=== PATIENT | male | born 1985 | race Two or more races ===

== ENCOUNTER 2019-12-15 00:19 | Day surgery (SDC) | payer SELFPAY ==
[2019-12-01 14:05] VITALS: BMI 31.9
--- NOTE | 2019-12-07 08:24 | PM.IMHP ---
H&P: HPI History of Present Illness Chief complaint: Right ACL Tear, Medial Meniscus Tear Narrative: Knee Pain Patient was seen for MRI review Involved knee: right Onset: gradual Location of pain: medial and lateral Character: throbbing Timing of pain: constant Exacerbated by: direct pressure, weight bearing, kneeling, squatting, rotational activities, prolonged activity and walking up stairs Relieved by: elevation and rest Associated symptoms: Reports instability Chief Complaint Chief Complaint: see Reason for Visit (Right Knee Pain ) Duration: weeks weeks: 3-4 Severity: moderate Associated signs and symptoms: symptoms reported: (see hpi) Exacerbating/relieving factors: relieving factors: (see hpi) Review of Systems Review of Systems: All systems reviewed & are unremarkable except as noted in HPI and below Constitutional: Constitutional: Denies headache(s) and Denies weakness Eyes: Eyes: Denies blurry vision, Denies change in vision and Denies loss of vision ENT: Denies dizziness, Denies dry mouth, Denies headache(s) and Denies nasal congestion Cardiovascular: Cardiovascular: Denies chest pain, Denies syncope, Denies leg edema and Denies dyspnea on exertion Respiratory: Respiratory: Denies cough and Denies dyspnea on exertion Gastrointestinal: Gastrointestinal: Denies abdominal pain, Denies constipation and Denies diarrhea Genitourinary: Genitourinary: Denies urinary frequency Musculoskeletal: Musculoskeletal: Reports as per HPI and Denies numbness Integumentary/Breasts: Skin/Breast: Reports system reviewed and no additional complaints, except as docu Neurologic: Denies dizziness, Denies syncope, Denies headache(s), Denies loss of vision, Denies numbness and Denies weakness Psychiatric: Psychiatric: Reports no additional psychiatric complaints Endocrine: Endocrine: Reports no additional endocrine complaints Hematologic/Lymphatic: Hematologic/Lymphatic: Reports no additional hematologic/lymphatic complaints [facility] Social History Social History Gender identity (if verbalized by the patient): Male Meds Home Medications and Allergies Home Medications Medication Instructions Recorded Confirmed Type No Home Medications 10/19/19 12/01/19 History Allergies Allergy/AdvReac Type Severity Reaction Status Date / Time No Known Allergies Allergy Verified 11/13/19 12:52 Exam Narrative: Exam Narrative: Extrem General: Yes normal to inspection, Yes capillary refill normal, No clubbing, No cyanosis, No edema, Yes Limp noted and Yes muscle atrophy Right lower extremity: normal to inspection, normal capillary refill and knee Details: normal to inspection, tenderness Location: medial joint line, swelling, knee ligament exam abnormal Details: anterior drawer test and Mathew's test and crepitus; Negative for abnormal to inspection, abnormal ROM (ROM 10 T0 125 DEG), Villa's Test, abrasion, laceration, ecchymosis, deformity (VARUS DEFORMITY) and warmth; No full ROM, cyanosis or edema Left lower extremity: normal to inspection, full ROM, normal capillary refill and knee (ROM 0 TO 130 EG) Details: normal to inspection, normal ROM and knee ligament exam normal; Negative for tenderness, swelling, Villa's Test, abrasion, laceration, ecchymosis, crepitus, deformity and warmth; No cyanosis, edema or no joint enlargement Assessment and Plan Additional Plan TONIE WAS SEEN FOR HIS RIGHT KNEE PAIN AND INSTABILITY. SPOKE A LITTLE BIT MORE ABOUT HIS PRIOR INJURIES WHICH HAPPENED IN [place] AND HIS ACL TEAR THAT WAS NEVER REPAIRED. HE ALSO TELLS ME ABOUT HOW HE HAS INSTABILITY ON OCCASION WELL FEELS THE KNEE GIVES OUT. THIS HAPPENS AT LEAST ONCE OR TWICE A WEEK. HE STILL COMPLAINS OF MEDIAL-SIDED KNEE PAIN AND ON EXAMINATION HE HAS TENDERNESS OVER THE MEDIAL JOINT LINE HE ALSO HAS SOME LAXITY WITH MATHEW'S MANEUVER AND WITH ANTERIOR DRAWER. HE HAS SMALL EFFUSION WE
[2019-12-15] VITALS (13 sets, daily range): BP systolic 117–149; BP diastolic 67–96; PULSE 81–101; RESP 14–28; TEMP 36.2–37.1; O2SAT 92–100
[2019-12-15] MEDS: CELECOXIB 200 MG CAPSULE PO (06:15)
--- NOTE | 2019-12-15 06:48 | WPDANESEPPF ---
Anes - Initial Pre Proc Eval Procedure: Operation Date: 12/15/19 07:30 Proposed Procedures p Right Anterior Cruciate Ligament Reconstruction, Medial Meniscectomy - Leonel Haas MD Date/Time: 12/15/19 06:48 Surgeon: Leonel Haas MD Pre Op Diagnosis: Right ACL Tear, Medial Meniscus Tear Patient Data Age: 34 Gender: M Height: 1.75 m Weight: 125.6 kg Last Vital Signs Temp 37.1 C 12/15/19 06:22 Pulse 86 12/15/19 06:22 Resp 16 12/15/19 06:22 BP 134/83 12/15/19 06:22 Pulse Ox 100 12/15/19 06:22 Allergies Allergy/AdvReac Type Severity Reaction Status Date / Time No Known Allergies Allergy Verified 11/13/19 12:52 Home Medications Medication Instructions Recorded Confirmed Type No Home Medications 10/19/19 12/01/19 History Patient hx anesthesia problems: none Family hx anesthesia problems: none PMFSH Social History Social History Gender identity (if verbalized by the patient): Male Anes - Eval Final PreProcedure Day of Procedure 12/15/19 06:48 Patient weight: morbidly obese Heart: regular rate and rhythm Lungs: clear to auscultation and normal air movement Airway: Mallampati scale class II Neurological: alert and oriented Last oral intake: >/= 8 hours ASA classification: III Emergent: no Anesthetic plan: proceed Anesthesia type and monitoring: general LMA and standard monitoring Informed Consent: The patient's anesthetic plan and its attendant risks and benefits were discussed with the patient/family/POA. Questions were solicited and answers provided to the satisfaction of the patient/family/POA.
[2019-12-15] MEDS: LACTATED RINGERS 1,000 ML 30 ML IV CONT ×2 (07:13→10:21)
--- NOTE | 2019-12-15 07:30 | SUR.PREOP ---
0715-PT INFORMED DR. LAIRD IS DELAYED DUE TO TRAFFIC ISSUE FOR UNDETERMINED AMOUNT OF TIME.
--- NOTE | 2019-12-15 07:51 | WPDHPUPDATE1 ---
History and Physical Update Update Date/Time: 12/15/19 07:51 History and Physical has been reviewed, including an updated exam of the patient. There are NO changes in the patient's condition. Risks, benefits, and alternatives have been discussed and questions answered. Patient agrees to proceed with procedure.
[2019-12-15] MEDS: ceFAZolin 2 GM/D5W 50 ML 2 GM/50 ML BAG IVPB (07:58)
--- NOTE | 2019-12-15 10:03 | PM.OP ---
Procedure Note - Brief Procedure Note - Brief Date of procedure: 12/15/19 Pre-op diagnosis: Right ACL Tear, Medial Meniscus Tear same with lateral meniscus tear Post-op diagnosis: same Procedure performed: R ACL RECON WITH PARTIAL MED AND LAT MENISCECTOMY AND MAJOR SYNOVECTOMY Anesthesia: GETA Surgeon: Leonel Haas MD Estimated blood loss (mL): 10 Complications: No immediate complications Condition: stable Disposition: PACU
--- NOTE | 2019-12-15 13:29 | OP_ITS ---
DATE OF PROCEDURE: 12/15/2019 PREOPERATIVE DIAGNOSIS: Right ACL tear with medial meniscus tear and lateral meniscus tear. POSTOPERATIVE DIAGNOSIS: Right ACL tear with medial meniscus tear and lateral meniscus tear. PROCEDURE: Right ACL reconstruction with allograft and partial medial meniscectomy, partial lateral meniscectomy and major synovectomy. ANESTHESIA: General. COMPLICATIONS: None. INDICATIONS: This is a 34-year-old male who ruptured his anterior cruciate ligament of his right knee. He was indicated for right knee ACL reconstruction because he had instability and pain. He also had a medial meniscus tear. He was also indicated for resection of that tear. DESCRIPTION OF PROCEDURE: The patient was taken to the operating room in stable condition and placed in supine position. General anesthesia was induced and then the right lower extremity was evaluated and a pivot-shift maneuver was performed and it was positive and then the right lower extremity was prepped and draped sterilely from the toes to the thigh. Superomedial portal used for an outflow cannula. Inferolateral portal was used for the camera. The camera was introduced. 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 There was significant amount of synovitis in the superior medial compartment and Hoffa-synovium. The medial compartment was entered. There was grade 2 chondromalacia to the medial femoral condyle. There was a large tear of the posterior horn of the medial meniscus and there was a significant amount of synovitis that was impinging on the medial femoral condyle in the joint line with range of motion. A medial portal was established, and then the medial meniscus tear was resected with a shaver and a biter, and then it was contoured as well to a smooth base. Grade 2 chondromalacia underwent chondroplasty. The intercondylar notch was entered. The ACL was completely torn. The lateral compartment was entered. There was a tear of the lateral meniscus. This was resected with a shaver and a biter as well and there was minimal chondromalacia, underwent chondroplasty. There was synovitis as well in the lateral compartment, it was impinging on the lateral joint line. Next, the intercondylar notch was entered once again and a debridement of the old ACL was performed until the PCL was identified. A notchplasty then was performed. The [id number] position was identified. An ACL guide was placed into the joint just anterior to the PCL. It was set at 55 degrees. An incision was made that placed the guide up against the tibia. A guide pin was placed and it exited out the guide in good position. Next, a 10 mm drill was used to drill the tibial tunnel. Next, #7 [id number] guide was placed into the intercondylar notch at approximately 11 o'clock position and a 10 mm drill was used to drill a 25 mm length tunnel in the femur. An allograft then was marked at 25 mm on the most proximal end and it was placed through the eye of the guide pin and it was shuttled through the tibial tunnel into the femoral tunnel. The EndoButton flipped and there was good stability of the femoral side of the graft. This was checked with tension on the tibial side. Once that was performed then with the knee in approximately 30 degrees of flexion and tension on the tibial side of the graft, #9 Endoscrew was used in place in the tibial tunnel over a Nitinol guidewire. The bite was excellent. Attention was released. The graft was in good position and there was a good solid drawer test and a Hannah's test. The knee came out to full extension. There was no impingement. The knee joint then was irrigated thoroughly. The tourniquet was deflated. The bleeders were cauterized. The incisions were removed from the knee joint. The deep layer of the major wound w
== END 2019-12-15 13:42 | disposition home or self-care (01) ==
PROVIDERS: Visit Provider Orthopaedic Surgery
PROC: (CPT 29888; principal; 2019-12-15 07:30)
DX: S83.511A Sprain of anterior cruciate ligament of right knee, initial encounter (principal); S83.241A Other tear of medial meniscus, current injury, right knee, initial encounter; S83.281A Other tear of lateral meniscus, current injury, right knee, initial encounter; M94.261 Chondromalacia, right knee; M65.861 Other synovitis and tenosynovitis, right lower leg; X58.XXXA Exposure to other specified factors, initial encounter; E66.01 Morbid (severe) obesity due to excess calories; Z68.41 Body mass index [BMI] 40.0-44.9, adult
CPT/HCPCS: 29880; 29888; A9270; J0131; J0690; J1100; J2250; J2405; J2704; J3010; J7120; L1830